=== PATIENT | female | born 1985 | race Caucasian/White ===

== ENCOUNTER 2017-09-20 19:12 | Emergency (ER) | payer MEDICAID ==
[2017-09-20 19:22] VITALS: BP 121/89
--- NOTE | 2017-09-20 19:46 | EDM.PDOC ---
ED HPI GENERAL MEDICAL PROBLEM - General Chief Complaint: Bite:Animal, Insect Stated Complaint: CHIGAR BITES SWELLING ITCHY AND PAINFUL Time Seen by Provider: 09/20/17 19:23 Source of Information: Reports: Patient History Limitations: Reports: No Limitations - History of Present Illness INITIAL COMMENTS - FREE TEXT/NARRATIVE: The patient presents with multiple chigger bites that are itchy and painful. She was up at the thurman at [facility] and got in some brush and got bites. It has been bothering her and she could not sleep last night. She feels feverish but she has no temp here. Onset: Gradual Duration: Day(s): Location: Reports: Face, Chest, Lower Extremity, Left, Lower Extremity, Right Quality: Reports: Burning (with itching) Severity: Severe Improves with: Reports: None Worsens with: Reports: None Associated Symptoms: Reports: Fever/Chills. Denies: Chest Pain, Headaches, Loss of Appetite, Shortness of Breath, Weakness - Related Data Allergies Allergy/AdvReac Type Severity Reaction Status Date / Time No Known Allergies Allergy Verified 09/20/17 19:22 Home Meds: Home Meds Cephalexin [Keflex] 500 mg PO QID #40 capsule 09/20/17 [Rx] predniSONE [Prednisone] 40 mg PO DAILY #10 tablet 09/20/17 [Rx] Past Medical History - Past Health History Medical/Surgical History: Denies Medical/Surgical History - Past Surgical History Female Surgical History: Reports: Section Social & Family History - Tobacco Use Smoking Status *Q: Never Smoker Second Hand Smoke Exposure: No - Caffeine Use Caffeine Use: Reports: Coffee, Soda - Recreational Drug Use Recreational Drug Use: No - Living Situation & Occupation Living situation: Reports: Single Occupation: Employed ED ROS GENERAL - Review of Systems Review Of Systems: See Below Constitutional: Reports: Fever HEENT: Reports: No Symptoms Respiratory: Reports: No Symptoms Cardiovascular: Reports: No Symptoms Endocrine: Reports: No Symptoms GI/Abdominal: Reports: No Symptoms : Reports: No Symptoms Musculoskeletal: Reports: No Symptoms Skin: Reports: Rash Neurological: Reports: No Symptoms ED EXAM, ANIMAL BITE - Physical Exam Exam: See Below Exam Limited By: No Limitations General Appearance: Alert, No Apparent Distress Ears: Normal External Exam Nose: Normal Inspection Head: Normocephalic, Other (Lesion on the right face with edema) Neck: Normal Inspection Respiratory/Chest: No Respiratory Distress Extremities: Other (Multiple lesions on the legs with an erythematus base. The one on her right foot has more edema and erythema.) Course - Vital Signs Last Recorded V/S: Last Vital Signs Temp 97.4 F 09/20/17 19:20 Pulse 98 09/20/17 19:20 Resp 18 09/20/17 19:20 BP 121/89 09/20/17 19:20 Pulse Ox 100 09/20/17 19:20 - Re-Assessments/Exams Free Text/Narrative Re-Assessment/Exam: 09/20/17 19:46 This does appear to be chigger bites and a couple look infected. I will get her on some keflex and some prednisone for the itching. I will also have her tack benadryl and pepcid. Departure - Departure Time of Disposition: 19:50 Disposition: Home, Self-Care 01 Condition: Good Clinical Impression: Chigger bites Cellulitis Qualifiers: Site of cellulitis: other site Qualified Code(s): L03.818 - Cellulitis of other sites - Discharge Information *PRESCRIPTION DRUG MONITORING PROGRAM REVIEWED*: Not Applicable *COPY OF PRESCRIPTION DRUG MONITORING REPORT IN PATIENT PHILIPPE: Not Applicable Prescriptions: Cephalexin [Keflex] 500 mg PO QID #40 capsule predniSONE [Prednisone] 40 mg PO DAILY #10 tablet Referrals: Josey Subramanian [employer] [Primary Care Provider] - Additional Instructions: Take the prednisone and keflex as prescribed. Clean the lesions with slightly warm soapy water 2 times per day and apply antibiotic ointment to the lesions on your face and right foot. Take benadryl 50mg every 6 hours for itching. Take pepcid daily. Please return if you are worse.
== END 2017-09-20 20:00 | disposition home or self-care (01) ==
LOC: JD.ED 19:12
DX: B88.0 Other acariasis (principal); L03.115 Cellulitis of right lower limb; L03.211 Cellulitis of face; Z79.899 Other long term (current) drug therapy
CPT/HCPCS: 99283

== ENCOUNTER 2017-10-06 16:05 | Emergency (ER) | payer MEDICAID ==
[2017-10-06] MEDS ORDERED: methylPREDNISolone Sodium Succinate 125 MG/2 ML SDV IVPUSH ONE (16:30)
[2017-10-06] MEDS ORDERED: Sodium Chloride 0.9% 10 ML Syringe FLUSH PRN (16:31)
--- NOTE | 2017-10-06 16:40 | EDM.PDOC ---
ED HPI GENERAL MEDICAL PROBLEM - General Chief Complaint: ENT Problem Stated Complaint: TONSILS Time Seen by Provider: 10/06/17 16:15 Source of Information: Reports: Patient, Old Records History Limitations: Reports: No Limitations - History of Present Illness INITIAL COMMENTS - FREE TEXT/NARRATIVE: 32-year-old female presents for evaluation and treatment of a sore throat. Reports symptoms started on Tuesday. Current symptoms include a sore throat, odynophagia, body aches, chills, diaphoresis and a productive cough. She denies any fevers or any shortness of breath. She states that she describes pain and pressure in her throat. States the left is worse than the right. States that it is hard to talk due to the pain. Reviewed the patient's records show 3 years ago she was admitted to our hospital and medically managed for peritonsillar abscess. She never did follow- up with ENT. No drainage of the abscess was performed and she was managed with IV antibiotics and steroids. Patient was seen earlier this month in the ER for chigar bites. Started on Keflex and prednisone. She states that these have improved. She did not finish the antibiotic but did take the full course of steroid. Throat Pain Score (Numeric/FACES): 7 - Related Data Allergies Allergy/AdvReac Type Severity Reaction Status Date / Time No Known Allergies Allergy Verified 10/06/17 16:15 Home Meds: Home Meds Lidocaine 2% [Xylocaine 2% Viscous] 15 ml MUCMEM Q4HR PRN #1 bottle 10/06/17 [Rx ] Past Medical History - Past Health History Medical/Surgical History: Denies Medical/Surgical History Other HEENT History: abscess to tonsil that closed off airway and required ICU admission Psychiatric History: Reports: Depression - Past Surgical History Female Surgical History: Reports: Section Other Musculoskeletal Surgeries/Procedures:: Bilateral knee surgeries Social & Family History - Family History Family Medical History: Noncontributory - Tobacco Use Smoking Status *Q: Never Smoker - Caffeine Use Caffeine Use: Reports: Coffee, Soda - Recreational Drug Use Recreational Drug Use: No - Living Situation & Occupation Living situation: Reports: Single Occupation: Employed ED ROS ENT - Review of Systems Review Of Systems: See Below Constitutional: Reports: Chills, Diaphoresis. Denies: Fever HEENT: Reports: Ear Pain (left), Throat Pain Respiratory: Reports: Cough, Sputum. Denies: Shortness of Breath GI/Abdominal: Denies: Nausea, Vomiting ED EXAM, ENT - Physical Exam Exam: See Below Exam Limited By: No Limitations General Appearance: Alert, WD/WN, No Apparent Distress Ears: Normal External Exam, Normal Canal, Hearing Grossly Normal, Normal TMs Nose: Normal Inspection Mouth/Throat: Normal Inspection, Normal Lips, Throat Pain, Tonsillar Erythema, Tonsillar Exudates (bilateral), Tonsillar Swelling (3+ tonsils bilteral) Neck: Normal Inspection. No: Lymphadenopathy (L), Lymphadenopathy (R) Respiratory/Chest: No Respiratory Distress, Lungs Clear, Normal Breath Sounds Cardiovascular: Normal Peripheral Pulses, Regular Rate, Rhythm, No Murmur Neurological: Alert, Oriented, Normal Cognition Psychiatric: Normal Affect, Normal Mood Skin: Warm, Dry, Normal Color Course - Vital Signs Last Recorded V/S: Last Vital Signs Temp 97.8 F 10/06/17 16:10 Pulse 83 10/06/17 18:10 Resp 16 10/06/17 18:10 BP 101/64 10/06/17 18:10 Pulse Ox 100 10/06/17 18:10 - Orders/Labs/Meds Orders: Active Orders 24 hr Category Date Time Status Peripheral IV Care [RC] . DIRECTED Care 10/06/17 16:31 Active STREP SCRN A RAPID W CULT CONF [RM] Stat Lab 10/06/17 16:35 Ordered Peripheral IV Insertion Adult [OM.PC] Routine Oth 10/06/17 16:31 Ordered Labs: Laboratory Tests 10/06/17 10/06/17 10/06/17 Range/Units 16:35 16:35 16:35 WBC 12.53 H (3.98-10.04) K/mm3 RBC 4.99 (3.98-5.22) M/mm3 Hgb 15.7 (11.2-15.7) gm/L Hct 45.9 H (34.1-44.9) % MCV 92.0 (79.4-94.8) fl MCH 31.5 (25.6-32.2) pg MCHC 34.2 (32.2-35.5) g/dl RDW Std Deviation 42.8 (36.4-46.3) fL Plt Count 252 (182-369) K/mm3 MPV 8.9 L (9.4-12.3) fl Neutrophils % (Manual) 80 H (40-60) % Band Neutrophils % 0 (0-10) % Lymphocytes % (Manual) 11 L (20-40) % Atypical Lymphs % 0 % Monocytes % (Manual) 8 (2-10) % Eosinophils % (Manual) 1 (0.7-5.8) % Basophils % (Manual) 0 L (0.1-1.2) Platelet Estimate Adequate Plt Morphology Comment Normal RBC Morph Comment Normal Sodium 136 (136-145) mEq/L Potassium 3.2 L (3.5-5.1) mEq/L Chloride 101 (98-107) mEq/L Carbon Dioxide 25 (21-32) mEq/L Anion Gap 13.2 (5-15) BUN 8 (7-18) mg/dL Creatinine 0.6 (0.55-1.02) mg/dL Est Cr Clr Drug Dosing 100.63 mL/min Estimated GFR (MDRD) > 60 (>60) mL/min BUN/Creatinine Ratio 13.3 L (14-18) Glucose 104 (74-106) mg/dL Calcium 9.2 (8.5-10.1) mg/dL Total Bilirubin 0.4 (0.2-1.0) mg/dL AST 13 L (15-37) U/L ALT 11 L (14-59) U/L Alkaline Phosphatase 88 (46-116) U/L C-Reactive Protein 22.5 H* (<1.0) mg/dL Total Protein 8.2 (6.4-8.2) g/dl Albumin 3.5 (3.4-5.0) g/dl Globulin 4.7 gm/dL Albumin/Globulin Ratio 0.7 L (1-2) Monoscreen Negative (NEGATIVE) Meds: Medications Discontinued Medications Generic Name Dose Route Start Last Admin Trade Name Freq PRN Reason Stop Dose Admin Methylprednisolone Sodium Succinate 125 mg 10/06/17 16:30 10/06/17 16:44 Solu-Medrol IVPUSH 10/06/17 16:31 125 mg ONETIME ONE Administration Penicillin G Benzathine 1.2 millunits 10/06/17 17:35 10/06/17 17:57 Bicillin L-A IM 10/06/17 17:36 1.2 millunits ONETIME ONE Administration Sodium Chloride 10 ml 10/06/17 16:31 10/06/17 16:44 Saline Flush FLUSH 10 ml ASDIRECTED PRN Administration Keep Vein Open - Re-Assessments/Exams Free Text/Narrative Re-Assessment/Exam: 10/06/17 17:42 Labs returned. Rapid strep is positive. Reviewed labs with the patient. She is feeling greatly improved with the Solu- Medrol. Discuss treatment options. She opted for the Bicillin shot. She would also like viscous lidocaine. I will have her follow up with ear, nose and throat due to her frequent problems with her tonsils. Will discharge home tonight. Discharge instructions as documented. Departure - Departure Time of Disposition: 17:42 Disposition: Home, Self-Care 01 Condition: Fair Clinical Impression: Strep pharyngitis - Discharge Information *PRESCRIPTION DRUG MONITORING PROGRAM REVIEWED*: No *COPY OF PRESCRIPTION DRUG MONITORING REPORT IN PATIENT PHILIPPE: No Prescriptions: Lidocaine 2% [Xylocaine 2% Viscous] 15 ml MUCMEM Q4HR PRN #1 bottle PRN Reason: Pain Instructions: Strep Throat, [id number] Referrals: PCP,None [Primary Care Provider] - Justyn Emanuel MD [Ordering Only Provider] - Forms: ED Department Discharge Additional Instructions: [id number] Tylenol and Motrin as needed for body aches and discomfort relief. He may use 15 mils of viscous lidocaine every 4 hours as needed for sore throat. Gargle, swish and spit. You were given Bicillin in the ER today. You are contagious until you have 24 hours of antibiotic in you. Recommend washing the cups, boiling toothbrush, etc. to prevent reinfection. strep is spread by saliva. Recommend follow-up with ear, nose and throat once your acute symptoms have improved. Recommend Dr. Emanuel in [place]. Call [phone] to schedule with him. make sure you are drinking plenty of fluids. Recommend soft foods, such as mashed potatoes, jello, etc. while you are recovering. Please return to the ER if your symptoms change or worsen. - My Orders Last 24 Hours: My Active Orders 10/06/17 16:31 Peripheral IV Care [RC] . DIRECTED Peripheral IV Insertion Adult [OM.PC] Routine 10/06/17 16:35 STREP SCRN A RAPID W CULT CONF [RM] Stat - Assessment/Plan Last 24 Hours: My Active Orders 10/06/17 16:31 Peripheral IV Care [RC] . DIRECTED Peripheral IV Insertion Adult [OM.PC] Routine 10/06/17 16:35 STREP SCRN A RAPID W CULT CONF [RM] Stat
[2017-10-06] MEDS ORDERED: Penicillin G Benzathine 1,200,000 Units/2 ML Syringe IM ONE (17:35)
[2017-10-06 18:25] VITALS: BP 101/64
== END 2017-10-06 18:10 | disposition home or self-care (01) ==
LOC: JD.ED 16:05
DX: J02.0 Streptococcal pharyngitis (principal)
CPT/HCPCS: 36415; 80053; 85007; 85027; 86140; 86308; 87430; 96372; 96374; 99283; J0561; J2930; J7050